=== PATIENT | male | born 1975 | race African-American/Black ===

== ENCOUNTER 2016-09-17 15:35 | Emergency (ER) | payer OTHER ==
[2016-09-17 16:01] VITALS: BP 147/98
--- NOTE | 2016-09-17 16:13 | UC ---
Throat Pain/Nasal Spencer HPI - HPI Summary HPI Summary: complaint of nasal congestion and cough that started 5 days ago coughing d/t post nasal drip sore throat for the last 2 days lost his voice today denies fever and chills denies ear pain, headaches, wheezing, shortness of breath took tussin for the cough with some relief yesterday - History of Current Complaint Chief Complaint: UCRespiratory Stated Complaint: SINUS CONGESTION, AND SORE THROAT Time Seen by Provider: 09/17/16 16:05 Hx Obtained From: Patient Cough: Nonproductive Associated Signs & Symptoms: Positive: Hoarseness - Allergies/Home Medications Allergies/Adverse Reactions: Allergies Allergy/AdvReac Type Severity Reaction Status Date / Time No Known Allergies Allergy Verified 11/15/15 16:16 PMH/Surg Hx/FS Hx/Imm Hx Previously Healthy: Yes Endocrine History Of: Reports: Diabetes - type 2 Cardiovascular History Of: Reports: Hypertension - Surgical History Surgical History: None - Family History Known Family History: Positive: None Negative: Cardiac Disease, Hypertension, Diabetes - Social History Lives: With Family Alcohol Use: Rare Substance Use Type: None Smoking Status (MU): Never Smoked Tobacco Review of Systems Constitutional: Negative Skin: Negative Eyes: Negative ENT: Sore Throat, Nasal Discharge Respiratory: Cough Cardiovascular: Negative Gastrointestinal: Negative Genitourinary: Negative Motor: Negative Neurovascular: Negative Musculoskeletal: Negative Neurological: Negative Psychological: Negative All Other Systems Reviewed And Are Negative: Yes Physical Exam Triage Information Reviewed: Yes Appearance: No Pain Distress, Well-Nourished Vital Signs: Initial Vital Signs Temp 98.4 F 09/17/16 15:55 Pulse 84 09/17/16 15:55 Resp 18 09/17/16 15:55 BP 147/98 09/17/16 15:55 Pulse Ox 98 09/17/16 15:55 Vital Signs Reviewed: Yes Eyes: Positive: Conjunctiva Clear ENT: Positive: Pharyngeal erythema, Nasal congestion, Nasal drainage, TMs normal , Muffled/hoarse voice. Negative: Tonsillar swelling, Tonsillar exudate Neck: Positive: No Lymphadenopathy Respiratory: Positive: Lungs clear, Normal breath sounds, No respiratory distress Cardiovascular: Positive: RRR, No Murmur Musculoskeletal: Positive: No Edema Neurological: Positive: Alert Psychological Exam: Normal Skin Exam: Normal Throat Pain/Nasal Course/Dx - Differential Dx/Diagnosis Differential Diagnosis/HQI/PQRI: Pharyngitis, URI, Other - laryngitis Provider Diagnoses: URI, laryngitis Discharge - Discharge Plan Condition: Stable Disposition: HOME Prescriptions: predniSONE TAB* [Deltasone TAB*] 50 mg PO DAILY #5 tab Patient Education Materials: Upper Respiratory Infection (ED), Laryngitis (ED) Referrals: Heather Bolden MD [Primary Care Provider] - Additional Instructions: Please take prednisone as directed. thsi medication will raise your blood glucose so make sure to take your regular medication. Increase fluids and rest Take acetaminophen for fever or pain Please review your discharge instructions. If your symptoms do not improve please call your primary care provider or return to urgent care.
== END 2016-09-17 16:25 | disposition home or self-care (01) ==
LOC: UCEAST 15:35
DX: J06.9 Acute upper respiratory infection, unspecified (principal); J04.0 Acute laryngitis
CPT/HCPCS: 99212; G0463

== ENCOUNTER 2016-11-19 08:33 | Emergency (ER) | payer OTHER ==
[2016-11-19 08:46] VITALS: BP 213/95
--- NOTE | 2016-11-19 09:28 | UC ---
Shortness of Breath HPI - HPI Summary HPI Summary: SUDDEN ONSET OF DYSPNEA YESTERDAY. FEELS HE CAN NOT TAKE DEEP BREATHS WITHOUT CHOKING. UNABLE TO SPEAK AT A NORMAL VOLUME. DENIES CP. HAS HAD URI SX FOR PAST 2 DAYS. NO FEVER. NO NAUSEA. STOPPED BP MEDS 3 MONTHS AGO. - History of Current Complaint Chief Complaint: UCRespiratory Stated Complaint: SOB Time Seen by Provider: 11/19/16 09:22 Hx Obtained From: Patient Onset/Duration: Sudden Onset, Lasting Hours, Still Present Timing: Constant Current Severity: Moderate Dyspnea At: Rest Aggrevating Factors: Deep Breaths Alleviating Factors: Nothing Associated Signs & Symptoms: Positive: Cough (Nonproductive), Diaphoresis, Nasal Congestion. Negative: Wheezing, Chest Pain w/Cough, Chest Pain Unrelated to Cough, Fever, Chills, Dizzy, Edema - Allergy/Home Medications Allergies/Adverse Reactions: Allergies Allergy/AdvReac Type Severity Reaction Status Date / Time No Known Allergies Allergy Verified 11/15/15 16:16 PMH/Surg Hx/FS Hx/Imm Hx Endocrine History Of: Reports: Diabetes - type 2 Cardiovascular History Of: Reports: Hypertension - Surgical History Surgical History: None - Family History Known Family History: Positive: None Negative: Cardiac Disease, Hypertension, Diabetes - Social History Alcohol Use: Rare Substance Use Type: None Smoking Status (MU): Never Smoked Tobacco Review of Systems Constitutional: Negative Respiratory: Shortness Of Breath, Cough Cardiovascular: Negative Gastrointestinal: Negative All Other Systems Reviewed And Are Negative: Yes Physical Exam Triage Information Reviewed: Yes Appearance: No Pain Distress, Well-Nourished, Ill-Appearing Vital Signs: Initial Vital Signs Temp 98.3 F 11/19/16 08:38 Pulse 106 11/19/16 08:38 Resp 20 11/19/16 08:38 BP 213/95 11/19/16 08:38 Pulse Ox 98 11/19/16 08:38 Vital Signs Reviewed: Yes Eyes: Positive: Conjunctiva Clear ENT: Positive: Hearing grossly normal Neck: Positive: Supple, Nontender, No Lymphadenopathy Respiratory: Positive: Lungs clear, Normal breath sounds, Respiratory distress, Accessory muscle use Cardiovascular: Positive: Tachycardia Abdomen Description: Positive: Soft Musculoskeletal: Positive: No Edema Neurological: Positive: Alert Psychological: Positive: Age Appropriate Behavior Skin: Positive: Other - DIAPHORETIC. Negative: rashes Shortness of Breath Dx - Differential Dx/Diagnosis Differential Diagnosis/HQI/PQRI: Airway Obstruction, Bronchitis, Pneumonia, Pneumothorax, Pulmonary Embolism, Unstable Angina Provider Diagnoses: DYSPNEA - Physician Notification/Consults Discussed Patient Care With: ROSS CASE Time Discussed With Above Provider: 09:32 - TO [facility] Discharge - Discharge Plan Condition: Fair Disposition: TRANS HIGHER LVL OF CARE FAC Referrals: Osmel Marroquin MD [Primary Care Provider] -
== END 2016-11-19 09:52 | disposition short-term general hospital (02) ==
LOC: UCEAST 08:33
DX: R06.00 Dyspnea, unspecified (principal); E11.9 Type 2 diabetes mellitus without complications; I10 Essential (primary) hypertension
CPT/HCPCS: 99213; G0463

== ENCOUNTER 2016-11-19 10:01 | Emergency (ER) | payer OTHER ==
[2016-11-19 10:37] LABS: Hematocrit 40 % (42-52); Hemoglobin 13.4 g/dl (14.0-18.0); Mean Corpuscular HGB Conc 33 g/dl (31-36); Mean Corpuscular Hemoglobin 27 pg (27-31); Mean Corpuscular Volume 81 fL (80-94); Mean Platelet Volume 9 um3 (7.4-10.4); Red Blood Count 4.96 10^6/ul (4.0-5.4); Red Cell Distribution Width 14 % (10.5-15); White Blood Count 8.9 10^3/ul (3.5-10.8)
[2016-11-19 10:53] LABS: Albumin 4.4 g/dL (3.2-5.2); BUN/Creatinine Ratio 6.7 (8-20); Calcium 8.8 mg/dL (8.6-10.3); EGFR African American 100.2 (>60); EGFR Non-African American 77.9 (>60); Globulin 3.1 g/dL (2-4); Potassium 3.8 mmol/L (3.5-5.0); Total Bilirubin 0.4 mg/dL (0.2-1.0); Total Protein 7.5 g/dL (6.4-8.9)
--- NOTE | 2016-11-19 11:04 | RAD ---
Indication: Productive cough. Shortness of breath. Comparison: January 26, 2014 chest radiograph and November 01, [address] Technique: Sitting AP and lateral chest views. Report: Accounting for superimposed soft tissues with large body habitus the lungs and pleural spaces are clear. Negative for pneumothorax. The heart, pulmonary vasculature, and mediastinal contours are unremarkable. Negative for free air beneath the diaphragm. IMPRESSION: No evidence for pneumonia. No evidence for acute intrathoracic disease.
[2016-11-19] MEDS ORDERED: guaiFENesin/CODIEN 100MG-10MG* 5 ML UDC PO ONE (11:33)
[2016-11-19 12:53] VITALS: BP 146/75
--- NOTE | 2016-11-19 13:45 | ED ---
Nivia Barnard Anna, scribed for Yehuda Shearer MD on 11/19/16 at 1015 . Shortness of Breath - HPI Summary HPI Summary: Patient is a 41 y/o male BIBA to [facility] presenting with sudden onset of constant SOB that began yesterday He describes talking as feeling like choking. He has had an unproductive cough and has taken OTC medication to drain his sinuses. He denies CP. He denies a history of respiratory issues. He was seen at [facility] this morning, and was sent here via EMS and received a breathing treatment. - History of Current Complaint Time Seen by Provider: 11/19/16 10:07 Hx Obtained From: Patient Onset/Duration: Sudden Onset, Still Present Associated Signs & Symptoms: Cough (Nonproductive) - Allergy/Home Medications Allergies/Adverse Reactions: Allergies Allergy/AdvReac Type Severity Reaction Status Date / Time No Known Allergies Allergy Verified 11/15/15 16:16 PMH/Surg Hx/FS Hx/Imm Hx Endocrine/Hematology History: Reports: Hx Diabetes - type 2 Cardiovascular History: Reports: Hx Hypertension Respiratory History: Denies: Hx Chronic Obstructive Pulmonary Disease (COPD) - Family History Known Family History: Negative: Cardiac Disease, Hypertension, Diabetes - Social History Alcohol Use: Rare Substance Use Type: Reports: None Smoking Status (MU): Never Smoked Tobacco Review of Systems Negative: Chest Pain Positive: Shortness Of Breath, Cough All Other Systems Reviewed And Are Negative: Yes Physical Exam Triage Information Reviewed: Yes Vital Signs On Initial Exam: Initial Vitals Temp Pulse Resp BP Pulse Ox 98.4 F 114 22 153/83 94 11/19/16 10:11 11/19/16 10:11 11/19/16 10:11 11/19/16 10:11 11/19/16 10:11 Vital Signs Reviewed: Yes Appearance: Positive: Well-Appearing, No Pain Distress Skin: Positive: Warm, Skin Color Reflects Adequate Perfusion, Dry Head/Face: Positive: Normal Head/Face Inspection Eyes: Positive: Normal ENT: Positive: Normal ENT inspection Neck: Positive: Supple, Nontender Respiratory/Lung Sounds: Positive: Breath Sounds Present, Rhonchi, Other - Some upper airway sounds. No respiratory distress. Cardiovascular: Positive: RRR Abdomen Description: Positive: Nontender, Soft Bowel Sounds: Positive: Present Musculoskeletal: Positive: Normal Neurological: Positive: Normal Psychiatric: Positive: Affect/Mood Appropriate Diagnostics - Vital Signs Vital Signs Temp Pulse Resp BP Pulse Ox 11/19/16 12:51 98.4 F 104 20 146/75 11/19/16 12:30 111 169/84 93 11/19/16 12:00 91 156/90 92 11/19/16 11:30 107 136/76 93 11/19/16 11:09 105 146/75 94 11/19/16 11:00 109 94 11/19/16 10:33 103 93 11/19/16 10:11 98.4 F 114 22 153/83 94 - Laboratory Lab Results: Lab Results 11/19/16 11/19/16 11/19/16 Range/Units 10:30 10:30 10:30 WBC 8.9 (3.5-10.8) 10^3/ul RBC 4.96 (4.0-5.4) 10^6/ul Hgb 13.4 L (14.0-18.0) g/dl Hct 40 L (42-52) % MCV 81 (80-94) fL MCH 27 (27-31) pg MCHC 33 (31-36) g/dl RDW 14 (10.5-15) % Plt Count 216 (150-450) 10^3/ul MPV 9 (7.4-10.4) um3 Neut % (Auto) 68.9 (38-83) % Lymph % (Auto) 21.3 L (25-47) % White % (Auto) 8.0 (1-9) % Eos % (Auto) 0.8 (0-6) % Baso % (Auto) 1.0 (0-2) % Absolute Neuts (auto) 6.1 (1.5-7.7) 10^3/ul Absolute Lymphs (auto) 1.9 (1.0-4.8) 10^3/ul Absolute Monos (auto) 0.7 (0-0.8) 10^3/ul Absolute Eos (auto) 0.1 (0-0.6) 10^3/ul Absolute Basos (auto) 0.1 (0-0.2) 10^3/ul Absolute Nucleated RBC 0.01 10^3/ul Nucleated RBC % 0.1 D-Dimer, Quantitative (Less Than 230) ng/mL Sodium 136 (133-145) mmol/L Potassium 3.8 (3.5-5.0) mmol/L Chloride 100 L (101-111) mmol/L Carbon Dioxide 28 (22-32) mmol/L Anion Gap 8 (2-11) mmol/L BUN 7 (6-24) mg/dL Creatinine 1.04 (0.67-1.17) mg/dL Est GFR ( Amer) 100.2 (>60) Est GFR (Non-Af Amer) 77.9 (>60) BUN/Creatinine Ratio 6.7 L (8-20) Glucose 211 H (70-100) mg/dL Lactic Acid 1.1 (0.5-2.0) mmol/L Calcium 8.8 (8.6-10.3) mg/dL Total Bilirubin 0.40 (0.2-1.0) mg/dL AST 38 (13-39) U/L ALT 50 (7-52) U/L Alkaline Phosphatase 56 (34-104) U/L Troponin I 0.00 (<0.04) ng/mL Total Protein 7.5 (6.4-8.9) g/dL Albumin 4.4 (3.2-5.2) g/dL Globulin 3.1 (2-4) g/dL Albumin/Globulin Ratio 1.4 (1-3) 11/19/ Range/Units 10:30 WBC (3.5-10.8) 10^3/ul RBC (4.0-5.4) 10^6/ul Hgb (14.0-18.0) g/dl Hct (42-52) % MCV (80-94) fL MCH (27-31) pg MCHC (31-36) g/dl RDW (10.5-15) % Plt Count (150-450) 10^3/ul MPV (7.4-10.4) um3 Neut % (Auto) (38-83) % Lymph % (Auto) (25-47) % White % (Auto) (1-9) % Eos % (Auto) (0-6) % Baso % (Auto) (0-2) % Absolute Neuts (auto) (1.5-7.7) 10^3/ul Absolute Lymphs (auto) (1.0-4.8) 10^3/ul Absolute Monos (auto) (0-0.8) 10^3/ul Absolute Eos (auto) (0-0.6) 10^3/ul Absolute Basos (auto) (0-0.2) 10^3/ul Absolute Nucleated RBC 10^3/ul Nucleated RBC % D-Dimer, Quantitative < 200 (Less Than 230) ng/mL Sodium (133-145) mmol/L Potassium (3.5-5.0) mmol/L Chloride (101-111) mmol/L Carbon Dioxide (22-32) mmol/L Anion Gap (2-11) mmol/L BUN (6-24) mg/dL Creatinine (0.67-1.17) mg/dL Est GFR ( Amer) (>60) Est GFR (Non-Af Amer) (>60) BUN/Creatinine Ratio (8-20) Glucose (70-100) mg/dL Lactic Acid (0.5-2.0) mmol/L Calcium (8.6-10.3) mg/dL Total Bilirubin (0.2-1.0) mg/dL AST (13-39) U/L ALT (7-52) U/L Alkaline Phosphatase (34-104) U/L Troponin I (<0.04) ng/mL Total Protein (6.4-8.9) g/dL Albumin (3.2-5.2) g/dL Globulin (2-4) g/dL Albumin/Globulin Ratio (1-3) Result Diagrams: 11/19/16 10:30 11/19/16 10:30 Lab Statement: Any lab studies that have been ordered have been reviewed, and results considered in the medical decision making process. - Radiology CXR Xray Interpretation: No Acute Changes Radiology Interpretation Completed By: Radiologist - IMPRESSION: No evidence for pneumonia. No evidence for acute intrathoracic disease. - EKG 1102 Cardiac Rate: Tachycardia - 102 bpm EKG Rhythm: Sinus Rhythm ST Segment: Normal Ectopy: None Re-Evaluation - Re-Evaluation First Eval Re-Evaluation Time: 11:32 Change: Improved Comment: His breathing is now somewhat better following the breathing treatment. Second Eval Re-Evaluation Time: 12:31 Change: Improved Comment: Patient feels safe going home. Course/Dx - Course Course Of Treatment: Mr. Raymond was hard to get a story out of. He preferred to keep his eyes shut and whisper his answers. He was clear to me that his chest pain was only when he coughed. He said he was bringing up yellow sputum and that he felt like he had sinusitis a few days ago. He felt lightheaded when he would have an episode of paroxysmal coughing. - Diagnoses Provider Diagnoses: DYSPNEA, Bronchitis Discharge - Discharge Plan Condition: Stable Disposition: HOME Prescriptions: Clarithromycin TAB* [Biaxin TAB*] 500 mg PO BID #20 tab guaiFENesin/CODIEN 100MG-10MG* [Robitussin AC 100Mg-10Mg*] 5 ml PO Q4H PRN #250 udc MDD 30 PRN Reason: Cough Patient Education Materials: Clarithromycin (By mouth), Dyspnea (ED) Referrals: Osmel Marroquin MD [Primary Care Provider] - Additional Instructions: Follow up with primary care provider within 48 hours. Return to the emergency department for any new or worsening symptoms. The documentation as recorded by the Nivia wallace Anna accurately reflects the service I personally performed and the decisions made by me, Yehuda Shearer MD.
== END 2016-11-19 12:51 | disposition home or self-care (01) ==
LOC: ED 10:01
DX: R06.00 Dyspnea, unspecified (principal); J40 Bronchitis, not specified as acute or chronic; R05 Cough; R06.02 Shortness of breath
CPT/HCPCS: 36415; 71020; 80053; 83605; 84484; 85025; 85379; 93005; 99283; A9270-GY

== ENCOUNTER 2017-04-13 09:09 | Emergency (ER) | payer OTHER ==
[2017-04-13 09:37] VITALS: BP 148/101
--- NOTE | 2017-04-13 10:00 | UC ---
Dental HPI - HPI Summary HPI Summary: 2 DAYS OF LEFT UPPER DENTAL PAIN AND LEFT CHEEK SWELLING. ABOUT A WEEK AGO HE NOTICED A FILLING BRIDGING 2 TEETH WAS CRACKED. DID NOT CALL HIS DENTIST RIGHT AWAY. NO FEVER. SENSITIVE TO HEAT, COLD AND PRESSURE. - History of Current Complaint Chief Complaint: UCDentalProblem Stated Complaint: DENTAL PAIN Time Seen by Provider: 04/13/17 09:41 Hx Obtained From: Patient Onset/Duration: Gradual Onset, Lasting Days, Still Present Severity: Moderate Pain Intensity: 8 Pain Scale Used: 0-10 Numeric Aggravating: Heat, Cold, Chewing Alleviating: Nothing Related History: Previous Dental Care on Same Tooth - Allergies/Home Medications Allergies/Adverse Reactions: Allergies Allergy/AdvReac Type Severity Reaction Status Date / Time No Known Allergies Allergy Verified 04/13/17 09:36 PMH/Surg Hx/FS Hx/Imm Hx Endocrine History: Diabetes Cardiovascular History: Hypertension - Surgical History Surgical History: None - Family History Known Family History: Positive: None Negative: Cardiac Disease, Hypertension, Diabetes - Social History Alcohol Use: Rare Substance Use Type: None Smoking Status (MU): Never Smoked Tobacco Review of Systems Constitutional: Negative ENT: Dental Pain Respiratory: Negative Cardiovascular: Negative Gastrointestinal: Negative All Other Systems Reviewed And Are Negative: Yes Physical Exam Triage Information Reviewed: Yes Appearance: Well-Appearing, Well-Nourished, Pain Distress - MODERATE Vital Signs: Initial Vital Signs Temp 98.0 F 04/13/17 09:33 Pulse 80 04/13/17 09:33 Resp 16 04/13/17 09:33 BP 148/101 04/13/17 09:33 Pulse Ox 98 04/13/17 09:33 Vital Signs Reviewed: Yes Eyes: Positive: Conjunctiva Clear ENT: Positive: Hearing grossly normal Dental: Positive: Gross Decay/Caries @ - WITH OVERLYING SOFT TISSUE SWELLING LEFT CHEEK Neck: Positive: Supple, Nontender, No Lymphadenopathy Respiratory: Positive: No respiratory distress, No accessory muscle use Cardiovascular: Positive: Pulses Normal Abdomen Description: Positive: Soft Musculoskeletal: Positive: No Edema Neurological: Positive: Alert Psychological: Positive: Age Appropriate Behavior Skin: Negative: rashes Dental Complaint Course/Dx - Differential Dx/Diagnosis Provider Diagnoses: LEFT UPPER DENTAL PAIN/INFECTION Discharge - Discharge Plan Condition: Stable Disposition: HOME Prescriptions: Amoxicillin/Clavulanate TAB* [Augmentin TAB 875*] 875 mg PO BID #20 tab Chlorhexidine MW 0.12% 473ML* [Peridex Mouth Wash 0.12%*] 15 ml SWISH SPIT BID # 1 bottle Hydrocodone-Acetaminophen [Lorcet 5-325 mg] 1 tab PO QID PRN #20 tab MDD 4 PRN Reason: Pain Patient Education Materials: Toothache (ED) Referrals: Osmel Marroquin MD [Primary Care Provider] - If Needed Additional Instructions: CALL YOUR DENTIST QUYEN TOMORROW MORNING.
== END 2017-04-13 10:05 | disposition home or self-care (01) ==
LOC: UCEAST 09:09
DX: K04.7 Periapical abscess without sinus (principal); E11.9 Type 2 diabetes mellitus without complications; I10 Essential (primary) hypertension
CPT/HCPCS: 99212; G0463